=== PATIENT | male | born 1990 | race Hispanic/Latino ===

== ENCOUNTER 2017-12-12 11:36 | Emergency (ER) | payer OTHER ==
[2017-12-12] MEDS ORDERED: METHYLPREDNISOLONE SOD SUCC 125MG/2ML VIAL ONE (11:56)
== END 2017-12-12 12:18 | disposition home or self-care (01) ==
LOC: EDH 11:36
DX: J45.901 Unspecified asthma with (acute) exacerbation (principal)
CPT/HCPCS: 96372; 99283; J2930